=== PATIENT | female | born 1965 | race Caucasian/White ===

== ENCOUNTER 2018-01-31 22:12 | Emergency (ER) | payer BC ==
[2018-01-31 23:44] LABS: ABSOLUTE BASOPHILS # (AUTO) 0.2 10^3/uL (0.0-0.2); ABSOLUTE EOSINOPHILS # (AUTO) 0.2 10^3/uL (0.0-0.6); ABSOLUTE LYMPHOCYTES (AUTO) 6.2 10^3/uL (0.5-4.7); ABSOLUTE MONOCYTES (AUTO) 1.2 10^3/uL (0.1-1.4); ABSOLUTE NEUT (AUTO) 6.4 10^3/uL (1.7-8.2); BASOPHILS % (AUTO) 1.5 % (0-2); EOSINOPHILS % (AUTO) 1.2 % (0-6); HEMATOCRIT 45.3 % (36.0-47.0); HEMOGLOBIN 15.4 g/dL (12.0-15.5); LYMPHOCYTES % (AUTO) 43.8 % (13-45); MEAN CORPUSCULAR HEMOGLOBIN 31.4 pg (27.0-33.4); MEAN CORPUSCULAR VOLUME 93 fl (80-97); MONOCYTES % (AUTO) 8.2 % (3-13); PLATELET COUNT 242 10^3/uL (150-450); SEGMENTED NEUTROPHILS % (AUTO) 45.3 % (42-78); TOTAL CELLS COUNTED % (AUTO) 100 %; WHITE BLOOD COUNT 14.1 10^3/uL (4.0-10.5)
--- NOTE | 2018-01-31 23:49 | RADIOLOGY REPORT (SQ) ---
EXAM DESCRIPTION: XR CHEST 1 VIEW COMPLETED DATE/TME: 01/31/2018 23:07 CLINICAL HISTORY: 52 years, Female, sob COMPARISON: None. NUMBER OF VIEWS: TECHNIQUE: LIMITATIONS: None. FINDINGS: No evidence of pulmonary infiltrate or pleural effusion. The heart and mediastinum are unremarkable. Pulmonary vascularity appears normal. IMPRESSION: No acute finding. copyright 2010 [employer]- All Rights Reserved
[2018-01-31 23:56] LABS: ALANINE AMINOTRANSFERASE 24 U/L (9-52); ALKALINE PHOSPHATASE 146 U/L (38-126); ANION GAP 6 (5-19); ASPARTATE AMINO TRANSFERASE 25 U/L (14-36); BILIRUBIN,DIRECT 0.3 mg/dL (0.0-0.4); BILIRUBIN,TOTAL 0.4 mg/dL (0.2-1.3); BLOOD UREA NITROGEN 12 mg/dL (7-20); CALCIUM 9.4 mg/dL (8.4-10.2); CARBON DIOXIDE 32 mmol/L (22-30); CHLORIDE 101 mmol/L (98-107); GLUCOSE 102 mg/dL (75-110); LIPASE 124.4 U/L (23-300); POTASSIUM 4.3 mmol/L (3.6-5.0); SODIUM 138.7 mmol/L (137-145); TOTAL PROTEIN 6.6 g/dL (6.3-8.2)
[2018-02-01 01:31] VITALS: BP 120/77
--- NOTE | 2018-02-01 01:34 | ER Document Report ---
ED General - General Chief Complaint: Shortness Of Breath Stated Complaint: SHORT OF BREATH, SHOULDER PAIN Time Seen by Provider: 01/31/18 23:07 Notes: Patient is a 52-year-old female with a past medical history of of left bundle branch block, presents with complaints of left shoulder pain radiating into her left upper extremity, generalized abdominal discomfort as well as a persistent cough over the last 10 days. The patient states that she has been coughing nonstop over the past 10 days and believes she may have strained her shoulder a nd abdominal wall. She was seen by an urgent care for the persistent cough, diagnosed with a pneumonia and started on doxycycline as well as high-dose steroids but states that this has not improved her symptoms. She states today while at work she had an abrupt onset of left shoulder pain which is described as a aching, throbbing pain worsened by range of motion of the shoulder. She notes shooting, stinging pain that radiates down the arm. Nothing improves that pain. No history of similar pain in the past. Patient was concerned that this could be cardiac in origin prompting her to come to the emergency department for assessment. In regards to the patient's abdominal discomfort she does describe this as a sensation of tightness across her central abdomen worsened by coughing. She denies associated vomiting or diarrhea. She has not had fever. No chest pain or syncope. No history of DVT or pulmonary embolus. No history of my cardial infarction or known coronary artery disease. TRAVEL OUTSIDE OF THE [place] IN LAST 30 DAYS: No - Related Data Allergies/Adverse Reactions: ciprofloxacin [From Cipro] Allergy (Verified 03/08/13 12:07) ciprofloxacin HCl [From Cipro] Allergy (Verified 03/08/13 12:07) latex [Latex] Allergy (Verified 03/08/13 12:07) Penicillins Allergy (Verified 03/08/13 12:07) Past Medical History - General Information source: Patient - Social History Smoking Status: Never Smoker Frequency of alcohol use: None Drug Abuse: None Lives with: Alone Family History: Reviewed & Not Pertinent Patient has suicidal ideation: No Patient has homicidal ideation: No Renal/ Medical History: Denies: Hx Peritoneal Dialysis Past Surgical History: Reports: Hx Bowel Surgery, Hx Cholecystectomy, Hx Hysterectomy, Hx Tonsillectomy - Immunizations Hx Diphtheria, Pertussis, Tetanus Vaccination: Yes Review of Systems - Review of Systems Notes: Constitutional: Negative for fever. HENT: Negative for sore throat. Eyes: Negative for visual changes. Cardiovascular: Positive for chest pain. Respiratory: Negative for shortness of breath. Positive for persistent cough Gastrointestinal: Positive for abdominal wall tightness Genitourinary: Negative for dysuria. Musculoskeletal: Positive for left shoulder pain Skin: Negative for rash. Neurological: Negative for headaches, weakness or numbness. 10 point ROS negative except as marked above and in HPI. Physical Exam - Vital signs Vitals: Temp Pulse Resp BP Pulse Ox 98.0 F 92 22 H 111/73 98 01/31/18 22:38 12 22:38 12 22:38 01/31/18 22:38 01/31/18 22:38 Interpretation: Normal Notes: PHYSICAL EXAMINATION: GENERAL: Well-appearing, well-nourished and in no acute distress. HEAD: Atraumatic, normocephalic. EYES: Pupils equal round and reactive to light, extraocular movements intact, sclera anicteric, conjunctiva are normal. ENT: nares patent, oropharynx clear without exudates. Moderately dry mucous membranes. NECK: Normal range of motion, supple without lymphadenopathy LUNGS: Breath sounds clear to auscultation bilaterally and equal. No wheezes rales or rhonchi. HEART: Regular rate and rhythm without murmurs ABDOMEN: Soft, nontender, normoactive bowel sounds. No guarding, no rebound. No masses appreciated. EXTREMITIES: Patient is unable to range her left shoulder above 45 degrees of abduction due to pain. No visible swelling or deformity to the left shoulder. Extremity examination is otherwise unremarkable. NEUROLOGICAL: No focal neurological deficits. Moves all extremities spontaneously and on command. RMU motor and sensory distribution is intact colleen aterally. PSYCH: Normal mood, normal affect. SKIN: Warm, Dry, normal turgor, no rashes or lesions noted. Course - Re-evaluation Re-evalutation: 02/01/18 01:30 Patient presents with multiple concerns. Her first concern is that she is having left shoulder pain worsened with movement of the shoulder as well as pain radiating down the arm. She also reports that for the past 10 days that she has had a persistent, unrelenting cough and now has developed abdominal soreness as well as soreness of the bilateral rib cages. On exam the patient is very well in appearance, in no distress, speaking to me without any difficulty. No l abored breathing. Vitals are noted to be within normal limits at the time of my assessment with a heart rate of 92, blood pressure 122 on 77 and saturating 96%. Examination is very benign with a completely benign abdominal exam without any areas of localized tenderness, rebound or guarding. Lung sounds are clear bilaterally. Patient does have intermittent coughing on exam. RMU motor and sensory distribution is intact bilaterally. She does have difficulty abducting the left shoulder above 45 degrees suggesting an acute musculoskeletal component to her left shoulder pain. Her chest x-ray is clear without any evidence of pneumonia or pneumothorax. Labs likewise unremarkable including a normal troponin. The patient was seen for what appears to be an acute bronchitis shortly prior to the onset of these symptoms and treated with a very aggressive dosing of steroids including an 800 mg dose of Solu-Medrol IM and was likewise started on doxycycline and outpatient prednisone both of which she has since discontinued due to her symptoms. I have advised her to continue with holding these medications as these do not seem indicated as she does not have either a reactive airway disease component to her presentation nor does she have a pneumonia on chest x-ray. At this time will discharge with return precautions and follow-up recommendations. Verbal discharge instructions given a the bedside and opportunity for questions given. Medication warnings reviewed. Patient is in agreement with this plan and has verbalized understanding of return precautions and the need for primary care follow-up in the next 24-72 hours. - Vital Signs Vital signs: Temp Pulse Resp BP Pulse Ox 98.0 F 92 15 120/77 96 01/31/18 22:38 01/31/18 22:38 02/01/18 01:00 02/01/18 01:00 02/01/18 01:00 - Laboratory Result Diagrams: 01/31/18 23:30 01/31/18 23:30 Laboratory results interpreted by me: 01/31/18 01/31/18 23:30 23:30 WBC 14.1 H Absolute Lymphocytes 6.2 H Carbon Dioxide 32 H Alkaline Phosphatase 146 H - Diagnostic Test Radiology reviewed: Image reviewed, Reports reviewed Radiology results interpreted by me: 02/01/18 01:32 Chest x-ray: No acute infiltrate or pneumothorax Discharge - Discharge Clinical Impression: Abdominal wall pain Left shoulder pain Qualifiers: Chronicity: acute Qualified Code(s): M25.512 - Pain in left shoulder Acute bronchitis Qualifiers: Bronchitis organism: unspecified organism Qualified Code(s): J20.9 - Acute bronchitis, unspecified Condition: Good Disposition: HOME, SELF-CARE Additional Instructions: You were seen for symptoms most consistent with bronchitis. This can take up to 12 weeks to fully resolve. This is generally due to a viral infection. Please follow-up with your primary doctor in the next 2-3 days. Return if you develop worsening cough, vomiting, fever >100.4, pass out, begin coughing blood, or have any other symptoms that are concerning to you. Please use the medications prescribed today as directed. Forms: Return to Work Referrals: RAYMOND YORK MD [Primary Care Provider] - Follow up as needed
--- NOTE | 2018-02-01 06:34 | EKG REPORT ---
SEVERITY:- ABNORMAL ECG - SINUS RHYTHM LEFT BUNDLE BRANCH BLOCK : Confirmed by: Luis Morrow MD 01-Feb-2018 06:33:18
== END 2018-02-01 01:57 | disposition home or self-care (01) ==
LOC: ER 22:12
DX: J20.9 Acute bronchitis, unspecified (principal); R10.84 Generalized abdominal pain; M25.512 Pain in left shoulder; R06.02 Shortness of breath; R05 Cough; R07.9 Chest pain, unspecified
CPT/HCPCS: 36415; 71045; 80053; 83690; 84484; 85025; 93005; 93010; 99285

== ENCOUNTER 2018-02-02 00:10 | Emergency (ER) | payer BC ==
--- NOTE | 2018-02-02 01:48 | RADIOLOGY REPORT (SQ) ---
3 VIEWS OF THE LEFT SHOULDER HISTORY: Trauma to left arm. Shoulder pain. COMPARISON: None. FINDINGS: Generalized osteopenia is present. No acute fracture is seen. The glenohumeral and acromioclavicular joints are preserved. There is mild soft tissue swelling overlying the left shoulder. IMPRESSION: No acute fracture or dislocation.
--- NOTE | 2018-02-02 02:13 | ER Document Report ---
ED General - General Chief Complaint: Shoulder Pain Stated Complaint: LEFT SHOULDER PAIN Time Seen by Provider: 02/02/18 00:46 Notes: Patient is a 52-year-old female who presents with complaint of left shoulder pain. Patient was seen yesterday because at that time she was having some other symptoms associate with a left shoulder pain. Precursor to all this pain starting patient was seen in urgent care for bronchitis. She was given 850 mg of Solu-Medrol IM and then placed on prednisone 60 mg a day for several days. She said after starting that she started to feel very unwell. She came to the ER yesterday and was evaluated. At that time she was having some abdominal pain some shortness of breath. There is no findings consistent with concern for cardiac disease. She says her shortness of breath and abdominal pain resolved but she still has left shoulder pain. She says to the point now where she cannot lift to lift her left shoulder or move her left shoulder without having severe pain. She has not had any redness or abnormal warmth to the shoulder. No fevers. Initially yesterday she cannot think of any trauma; however, patient now remembers that prior to the pain starting the went pulled her car door hard and she grabbed it with the left hand and felt a pull in her left shoulder. She denies any weakness into her left hand. No numbness. No other complaints at this time. No pain into the elbow wrist or hand. TRAVEL OUTSIDE OF THE [place] IN LAST 30 DAYS: No - Related Data Allergies/Adverse Reactions: ciprofloxacin [From Cipro] Allergy (Verified 03/08/13 12:07) ciprofloxacin HCl [From Cipro] Allergy (Verified 03/08/13 12:07) latex [Latex] Allergy (Verified 03/08/13 12:07) Penicillins Allergy (Verified 03/08/13 12:07) Past Medical History - Social History Smoking Status: Never Smoker Frequency of alcohol use: None Drug Abuse: None Family History: Reviewed & Not Pertinent Patient has suicidal ideation: No Patient has homicidal ideation: No Renal/ Medical History: Denies: Hx Peritoneal Dialysis Past Surgical History: Reports: Hx Bowel Surgery, Hx Cholecystectomy, Hx Hysterectomy, Hx Tonsillectomy - Immunizations Hx Diphtheria, Pertussis, Tetanus Vaccination: Yes Review of Systems - Review of Systems Notes: My Normal Review Basic REVIEW OF SYSTEMS: CONSTITUTIONAL : Denies fever, chills, or sweats. Denies recent illness. CARDIOVASCULAR: Denies chest pain. MUSCULOSKELETAL: Left shoulder pain SKIN: Denies rash or skin lesions. NEUROLOGICAL: Denies sensory or motor loss. ALL OTHER SYSTEMS REVIEWED AND NEGATIVE. Physical Exam - Vital signs Vitals: Temp Pulse Resp BP Pulse Ox 98.4 F 90 18 140/81 H 96 02/02/18 00:35 02/02/18 00:35 02/02/18 00:35 02/02/18 00:35 02/02/18 00:35 - Notes Notes: General Appearance: Well nourished, alert, cooperative, no acute distress, moderate obvious discomfort. Vitals: reviewed, See vital signs table. Head: no swelling or tenderness to the head Eyes: PERRL, EOMI, Conjuctiva clear Mouth: No decreasd moisture Extremities: Patient does not have any redness or swelling to the left shoulder. No abnormal warmth to palpation of the shoulder. She has severe pain whenever I push over the acromioclavicular joint and the lateral superior aspect of the shoulder. She has severe pain with any attempted range of motion of the shoulder. No pain into the elbow wrist or hand. No bruising to the shoulder. She has good strength in the hand. Normal movement of all fingers of the hand. Good distal sensation in all dermatomes of the left distal extremity. Skin: warm, dry, appropriate color, no rash Neuro: speech clear, oriented x 3, normal affect, responds appropriately to questions. Course - Re-evaluation Re-evalutation: 02/02/18 02:26 I did obtain x-ray. There is no evidence of AC separation. No evidence of fracture or dislocation. Patient's exam shows that she does have a lot of pain with range of motion of her shoulder however I do not suspect infection as she has no redness, no warmth to the shoulder, no precursors that should cause infection of the shoulder joint. I suspect this patient most likely has a tendinous or ligamentous injury to the joint being that the patient was just recently given such high doses of steroids and the fact the patient is unable to abduct her arm at all on her own. This time will give her a sling. I still encouraged her to try to put her shoulder through some range of motion a few times a day to help prevent frozen shoulder. I encouraged her to take Tylenol for pain. Endocrine encouraged her to avoid NSAIDs for the next week being that the patient was recently given high doses of steroids. We will have her follow-up with Dr. Chua, orthopedic surgeon, for reevaluation and further workup and treatment. Patient to return to ER if she has any redness or swelling or abnormal warmth to the left shoulder. Patient agrees with plan will be discharged home. Dictation of this chart was performed using voice recognition software; therefore, there may be some unintended grammatical errors. - Vital Signs Vital signs: Temp Pulse Resp BP Pulse Ox 98.4 F 90 18 140/81 H 96 02/02/18 00:35 02/02/18 00:35 02/02/18 00:35 02/02/18 00:35 02/02/18 00:35 Discharge - Discharge Clinical Impression: Left shoulder pain Qualifiers: Chronicity: acute Qualified Code(s): M25.512 - Pain in left shoulder Condition: Stable Disposition: HOME, SELF-CARE Additional Instructions: Please call Dr. Chua's office to arrange for a close follow up appointment for reevaluation and further workup and treatment. please try to put your shoulder through range of motion a few times a day. please avoid NSAIDS for the next few weeks due to you recently being on high dosages of steroids. Tylenol and is safe and appropriate to give. Please return to the ER if you have any further concerns. Return to the ER if you have any fevers, abnormal wamth, or redness to the joint. Referrals: IRAJ CHUA MD [ACTIVE STAFF] - Follow up in 3-5 days (call offiec Saturday to arrange for follow up appointment.)
[2018-02-02 02:35] VITALS: BP 134/76
== END 2018-02-02 02:35 | disposition home or self-care (01) ==
LOC: ER 00:10
DX: M25.512 Pain in left shoulder (principal); R06.02 Shortness of breath; Z79.899 Other long term (current) drug therapy
CPT/HCPCS: 99283

== ENCOUNTER 2019-02-20 22:14 | Emergency (ER) | payer BC ==
[2019-02-20 22:29] VITALS: BP 143/78
== END 2019-02-20 23:00 | disposition left against medical advice (07) ==
LOC: ER 22:14
DX: Z53.21 Procedure and treatment not carried out due to patient leaving prior to being seen by health care provider (principal)